=== PATIENT | male | born 1945 | race Two or more races ===

== ENCOUNTER → 2020-06-24 | Outpatient (CLI) | payer BC, MEDICARE ==
[~2020-06-24] MED LIST: CILOSTAZOL100 MG PO; GLIPIZIDE5 MG ORAL; JANUVIA50 MG ORAL; METFORMIN HCL500 M1 ORAL
--- NOTE | 2020-06-25 11:14 | Consultation ---
DATE OF CONSULTATION: 06/24/2020 CONSULTING PHYSICIAN: Max Nguyen MD. REFERRING PHYSICIAN: Pamella Hartley MD. REASON FOR CONSULTATION: Referral for weight loss and blood in the stool. PAST MEDICAL HISTORY: UTI and diabetes. PAST SURGICAL HISTORY: None. MEDICATIONS: None. ALLERGIES: No known drug allergies. FAMILY HISTORY: No family history of GI malignancies. SOCIAL HISTORY: The patient denies any alcohol but smokes occasionally. No IV drug abuse. REVIEW OF SYSTEMS: Positive for significant weight loss of over 25 pounds, loss of appetite, blood seen in the stool. PHYSICAL EXAMINATION: GENERAL: The patient is well developed male, no acute distress. HEENT: Normocephalic and atraumatic. Sclerae anicteric. NECK: Supple. No evidence of obvious lymphadenopathy. CARDIOVASCULAR: Regular rate and rhythm. Plus S1-S2. LUNGS: Clear to auscultation bilaterally. ABDOMEN: Positive bowel sounds. Soft, nontender. No rebound. No guarding. No peritoneal sign. EXTREMITIES: No cyanosis, no clubbing, no edema. ASSESSMENT AND PLAN: The patient is a 74-year-old male with significant weight loss, loss of appetite. No prior history of endoscopy and colonoscopy. Stool OB positive for blood. The patient needs an endoscopy and colonoscopy. The patient was informed about the risks and benefits of procedure. The prep was explained to him. We will schedule him hopefully . I want to thank, Dr. Hartley, for this kind referral. Max Nguyen M.D. DR: Margie JOB#: [id number] CC: Pamella Hartley M.D.; Fax#: [phone]
== END | disposition home or self-care (01) ==
LOC: PAN 14:31
DX: R63.4 Abnormal weight loss (principal); K92.1 Melena; E11.9 Type 2 diabetes mellitus without complications; F17.200 Nicotine dependence, unspecified, uncomplicated

== ENCOUNTER 2020-07-10 13:04 | Outpatient (CLI) | payer MEDICARE, BC ==
--- NOTE | 2020-07-12 14:38 | General Progress Note ---
Subjective ROS Limited/Unobtainable: Yes Allergies: Coded Allergies: No Known Allergies (Unverified , 06/25/20) Objective General Appearance: alert EENT: PERRL/EOMI Neck: supple Cardiovascular: normal rate Respiratory/Chest: decreased breath sounds Abdomen: normal bowel sounds, non tender, soft Extremities: non-tender Assessment/Plan Assessment/Plan: SUMMARY OF FINDINGS: 1. Gastritis, status biopsy. 2. 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 3. Total of 5 polyps removed, largest one about 2.5 cm in size. 4. Internal hemorrhoids. treat for HP repeat colonoscopy in 3 years Max Nguyen MD Jul 12, 2020 14:38
== END 2020-07-10 15:04 | disposition home or self-care (01) ==
LOC: PAN 13:04
DX: R10.9 Unspecified abdominal pain (principal)
CPT/HCPCS: 99212